=== PATIENT | male | born 1970 ===

== ENCOUNTER 2018-10-26 14:34 | Inpatient (IN) | payer BC, OTHER ==
--- NOTE | 2018-10-26 14:48 | ED PDOC ---
HPI:STROKE - Time Time: 14:45 - Historian Historian: Patient, Family - Chief Complaint Chief Complaint: Weakness, Numbness, Arm weakness, Leg weakness - Onset Date: 10/26/18 Time: 14:00 - Timing Timing: Improved - Location Locate left: Lower extremity - Severity of pain Maximum severity:: Moderate Severity Current: Mild - TPA Positive for Contraindication: Yes Reason tPA is not being Administered: Symtoms improving - Notes: Notes:: Weakness/numbness left upper and lower ext at 2 PM. not in room at time of onset of sxs. Did not witness seizure activity. Paramedics state on arrival pt was post-ictal but also did not witness seizure activity. No urinary or fecal incontinence. On arrival to ED, pt states sxs of weakness and numbness left side improving. NIHSS Stroke Scale - Date/Time Evaluation Performed Time Performed: 14:45 When Was NIHSS Performed: Code Stroke - How Severe is the Stroke Level of Consciousness: 0=Alert LOC to Questions: 0=Both comments correct LOC to commands: 0=Obeys both correctly Best Gaze: 0=Normal Visual: 0=No visual loss Facial: 0=Normal Motor Arm - Left: 0=No drift Motor Arm - Right: 0=No drift Motor Leg - Left: 0=No drift Motor Leg - Right: 0=No drift Limb Ataxia: 0=Absent Sensory: 0=Normal Best Language: 0=No aphasia Dysarthia: 0=Normal articulation Extinction & Inattention (Neglect): 0=Normal, no object Score: 0 rTPA Inclusion/Exclusion - Refusal of Treatment Patient Refused Treatment: No - Inclusion Criteria for Altepase Patient is 18 years or Older: Yes The Clinical Diagnosis of Ischemic Stroke That is Causing a Potentially Disabling Neurological Deficit: No Time of Onset is Well Established to be Less Than 270 Minute Before Treatment Would Begin: Yes Risk/Benefit Discussed With Patient/Family Member Present: No Past Medical History Vital Signs: Last Vital Signs Temp 97.7 F 10/26/18 14:36 Pulse 120 H 10/26/18 14:36 Resp 18 10/26/18 14:36 BP 109/67 10/26/18 14:36 Pulse Ox 94 L 10/26/18 14:36 - Medical History PMH: Diabetes, HTN Denies: HIV - Family History Family History: States: Unknown Family Hx - Home Medications Home Medications: Ambulatory Orders Medication Instructions Recorded Insulin Regular [HumuLIN R] 10 units SC ACTID 12/14/14 Insulin Detemir [Levemir Flexpen] 65 unit SC HS 12/14/14 Valsartan/Hydrochlorothiazide 1 tab PO DAILY 10/26/18 [Diovan Hct 160-12.5 mg Tab] - Allergies Allergies/Adverse Reactions: Allergies Allergy/AdvReac Type Severity Reaction Status Date / Time No Known Allergies Allergy Verified 12/14/14 12:42 Review of Systems ROS Statement: Except As Marked, All Systems Reviewed And Found Negative Neurological: Positive for: Weakness, Numbness (Left upper and lower ext.) Physical Exam - Reviewed Nursing Documentation Reviewed: Yes Vital Signs Reviewed: Yes - Physical Exam Appears: Positive for: Non-toxic, No Acute Distress Head Exam: Positive for: ATRAUMATIC, NORMAL INSPECTION, NORMOCEPHALIC Skin: Positive for: Normal Color, Warm, DRY Eye Exam: Positive for: EOMI, Normal appearance, PERRL ENT: Negative for: Other (Bite patel tip of tongue) Neck: Positive for: Normal, Painless ROM Cardiovascular/Chest: Positive for: Regular Rate, Rhythm Respiratory: Positive for: CNT, Normal Breath Sounds Gastrointestinal/Abdominal: Positive for: Normal Exam, Soft Back: Positive for: Normal Inspection Extremity: Positive for: Normal ROM Neurologic/Psych: Positive for: Alert, Oriented. Negative for: Motor/Sensory Deficits - ECG O2 Sat by Pulse Oximetry: 94 Disposition - Clinical Impression Clinical Impression: New onset seizure - Patient ED Disposition Is Patient to be Admitted: Yes - Disposition Disposition Time: 15:28 Condition: FAIR Forms: [facility] (Nepali) - Pt Status Changed To: Hospital Disposition Of: Observation - POA Present On Arrival: None
[2018-10-26 14:56] VITALS: BMI 33.7
--- NOTE | 2018-10-26 15:05 | CT ---
Date of service: 10/26/2018 PROCEDURE: CT HEAD WITHOUT CONTRAST. HISTORY: code stroke COMPARISON: None available. TECHNIQUE: Axial computed tomography images were obtained through the head/brain without intravenous contrast. Radiation dose: Total exam DLP = 1199.76 mGy-cm. This CT exam was performed using one or more of the following dose reduction techniques: Automated exposure control, adjustment of the mA and/or kV according to patient size, and/or use of iterative reconstruction technique. FINDINGS: HEMORRHAGE: No intracranial hemorrhage. BRAIN: Normal zhu-white matter differentiation and density are appreciated throughout the cerebrum and cerebellum with the brainstem appearing unremarkable as well. There is no mass effect. There is no suspicious extra-axial fluid collection and the midline brain anatomy appears diffusely unremarkable. VENTRICLES: Unremarkable. No hydrocephalus. CALVARIUM: Unremarkable. PARANASAL SINUSES: Unremarkable as visualized. No significant inflammatory changes. MASTOID AIR CELLS: Unremarkable as visualized. No inflammatory changes. OTHER FINDINGS: None. IMPRESSION: Unremarkable unenhanced head CT. Findings discussed with Dr. Justice with written down read back verification 10/26/2018 2:59 p.m..
[2018-10-26 15:45] LABS: BASO % 0.5 % (0.0-2.0); EOS % 0.7 % (0.0-4.0); HEMOGLOBIN 14.9 g/dL (12.0-18.0); LYMPH % 17.4 % (20.0-40.0); MEAN CELL VOLUME 101.3 fl (80.0-94.0); MEAN CORPUSCULAR HEMOGLOBIN 33.2 pg (27.0-31.0); MEAN CORPUSCULAR HGB CONC 32.8 g/dL (33.0-37.0); MEAN PLATELET VOLUME 8.8 fl (7.2-11.7); MONO # 0.4 K/uL (0.0-0.8); MONO % 6.9 % (0.0-10.0); NEUT # 4.3 K/uL (1.8-7.0); NEUT % 74.5 % (50.0-75.0); NRBC % 0.1 % (0.0-0.0); RBC 4.47 Mil/uL (4.40-5.90); RED CELL DISTRIBUTION WIDTH 14.1 % (11.5-14.5); WHITE BLOOD COUNT 5.8 K/uL (4.8-10.8)
[2018-10-26 15:48] LABS: INR 0.9
[2018-10-26 15:54] LABS: ALB/GLOB RATIO 1.3 (1.0-2.1); ALBUMIN 4.3 g/dL (3.5-5.0); ALT/SGPT 36 U/L (21-72); AST/SGOT 37 U/L (17-59); BLOOD UREA NITROGEN 14 mg/dl (9-20); CALCIUM 9.4 mg/dL (8.4-10.2); GFR NON-AFRICAN AMERICAN 50; HDL CHOLESTEROL 105 MG/DL (30-70)
[2018-10-26 16:04] LABS: LDL CHOLESTEROL 122 mg/dL (0-129)
[2018-10-26] MEDS ORDERED: Sodium Chloride 0.9% 1,000 ML IV STA (16:18)
--- NOTE | 2018-10-26 16:43 | MRI ---
Date of service: 10/26/2018 PROCEDURE: MRI BRAIN WITHOUT CONTRAST HISTORY: New onset seizure COMPARISON: None available. TECHNIQUE: Multiplanar, multisequence MR images of the brain were obtained without intravenous contrast enhancement. FINDINGS: HEMORRHAGE: None DWI: No evidence of an acute or early subacute infarction. BRAIN PARENCHYMA: Intrinsic signal throughout the zhu and white matter structures above below the tentorium appears within normal limits including the brainstem. There is no mass effect, parenchymal edema or loss of the corticomedullary differentiation. Midline brain anatomy appears within normal limits including the corpus callosum, brainstem and craniocervical junction. There is no suspicious extra-axial fluid collection identified. VENTRICLES: Unremarkable. No hydrocephalus. CRANIUM: Unremarkable. ORBITS: Grossly unremarkable. PARANASAL SINUSES/MASTOIDS: Clear VASCULAR SYSTEM: Skull base flow voids intact. OTHER FINDINGS: None. IMPRESSION: Unremarkable non contrast enhanced MRI of the brain.
--- NOTE | 2018-10-26 16:47 | RAD ---
Date of service: 10/26/2018 HISTORY: Code Stroke COMPARISON: 07/21/2013 FINDINGS: LUNGS: No active pulmonary disease. PLEURA: No significant pleural effusion identified, no pneumothorax apparent. CARDIOVASCULAR: No atherosclerotic calcification present Normal. OSSEOUS STRUCTURES: No significant abnormalities. VISUALIZED UPPER ABDOMEN: Normal. OTHER FINDINGS: None. IMPRESSION: No active disease. No significant interval change compared to the prior examination(s).
[2018-10-26 16:58] LABS: ABG ALLEN TEST YES; ARTERIAL BLOOD GAS HCO3 18.2 mmol/L (21-28); ARTERIAL BLOOD GAS O2 SAT 100.3 % (95-98); ARTERIAL BLOOD GAS PCO2 24 mm/Hg (35-45); ARTERIAL BLOOD GAS PH 7.39 (7.35-7.45); ARTERIAL BLOOD GAS PO2 97 mm/Hg (80-100); ARTERIAL BLOOD GAS TCO2 15.2 mmol/L (22-28)
[2018-10-26 17:00] LABS: PROTHROMBIN TIME 9.7 Seconds (9.8-13.1)
[2018-10-26] MEDS: Sodium Chloride 0.9% 1,000 ML IV SCH (17:05)
[2018-10-26 20:57] LABS: VENOUS BLOOD GAS PCO2 32 mmHg (40-60); VENOUS BLOOD GAS PO2 30 mm/Hg (30-55); VENOUS BLOOD PH 7.45 (7.32-7.43)
[2018-10-26] MEDS ORDERED: Insulin Detemir 100 Units/ml Inj SC SCH (22:00)
[2018-10-26] MEDS ORDERED: Insulin Regular 100 units/ml SC SCH (23:00)
[2018-10-27 05:49] LABS: LYMPH # 1.1 K/uL (1.0-4.3); LYMPH % 18.3 % (20.0-40.0); MEAN CORPUSCULAR HEMOGLOBIN 33.4 pg (27.0-31.0); MEAN CORPUSCULAR HGB CONC 33.8 g/dL (33.0-37.0); MEAN PLATELET VOLUME 9.1 fl (7.2-11.7); MONO # 3.7 K/uL (0.0-0.8); NEUT # 1.3 K/uL (1.8-7.0); NEUT % 20.7 % (50.0-75.0); NRBC % 0.2 % (0.0-0.0); PLATELET COUNT 178 K/uL (130-400); RBC 4.49 Mil/uL (4.40-5.90); RED CELL DISTRIBUTION WIDTH 13.8 % (11.5-14.5); WHITE BLOOD COUNT 6.1 K/uL (4.8-10.8)
[2018-10-27 05:57] LABS: MEAN CELL VOLUME 98.8 fl (80.0-94.0)
[2018-10-27] MEDS: Sodium Chloride 0.9% 1,000 ML IV SCH (06:06)
[2018-10-27] MEDS: Insulin Lispro (humaLOG) 100 Units/ml Inj SC SCH ×7 (06:40→21:41)
[2018-10-27 06:53] LABS: ALB/GLOB RATIO 1.2 (1.0-2.1); ALBUMIN 4.2 g/dL (3.5-5.0); ALT/SGPT 44 U/L (21-72); AST/SGOT 31 U/L (17-59); BLOOD UREA NITROGEN 12 mg/dl (9-20); CALCIUM 9.1 mg/dL (8.4-10.2); GFR NON-AFRICAN AMERICAN > 60
[2018-10-27] MEDS ORDERED: Insulin Regular 100 units/ml SC SCH (07:30)
--- NOTE | 2018-10-27 07:31 | CON ---
DATE: 10/26/2018 ENDOCRINOLOGY CONSULT LOCATION: Room 401. HISTORY OF PRESENT ILLNESS: This is a 48-year-old male with known history of type 2 insulin-requiring diabetes, presenting here with sudden onset of apparent seizure event with left-sided weakness and is now being referred for diabetic evaluation and management. PAST MEDICAL HISTORY: History of type 2 insulin-requiring diabetes, hypertension and underlying morbid obesity. His current insulin regimen consists of Levemir given as 65 units at bedtime with regular insulin given as 10 units t.i.d. FAMILY HISTORY: Positive for hypertension and heart disease. SOCIAL HISTORY: The patient has a supportive family. No known substance use. REVIEW OF SYSTEMS: As mentioned above. Admits to generalized body weakness with episodic bouts of dizziness and lightheadedness. No chest pains or palpitations. His oral intake has been fairly satisfactory with occasional dyspepsia. No recent alterations of bowel and urinary patterns. PHYSICAL EXAMINATION: GENERAL: This is an obese male in no apparent distress. VITAL SIGNS: Blood pressure of 140/80, pulse of 100 beats per minute and regular, temperature 98, respirations 20. Height is 6 feet 6 inches. Weight is 292 pounds. HEENT: Head: Normocephalic. Eyes: Anicteric with pink conjunctivae. Funduscopy not possible at this time. Ears, nose and throat otherwise normal. NECK: Supple. Thyroid gland is normal in size. No carotid bruits or any cervical adenopathy. CARDIOPULMONARY: Some adynamic precordium. S1, S2, is rapid and regular. LUNGS: Show scattered rhonchi. ABDOMEN: Obese, soft with positive bowel sounds. EXTREMITIES: No peripheral edema. Pulses are +2 bilaterally. LABORATORY DATA: His chemistry showed a BUN of 14, sodium 136, potassium 4.7, chloride 100, CO2 is 11, glucose is 288 and creatinine is 1.5. His glucose levels have ranged from 199 to 307. ASSESSMENT: This is a 48-year-old male with uncontrolled and decompensated type 2 insulin-requiring diabetes, presenting here with an apparent seizure event with left-sided weakness and currently undergoing neurologic workup and management and is also being referred for diabetic evaluation because of persistent hyperglycemic accelerations as noted thereof. He also has underlying morbid obesity, which contributes to the aforementioned increased insulin resistance and further impairs glucose tolerance thereof. PLAN OF MANAGEMENT: We will modify his current insulin regimen to a more physiologic basal and bolus insulin drug combination with a rapid acting insulin analogue instead of a short-acting regular insulin as noted and given. We will continue the basal insulin given as Levemir at 65 units at bedtime, and we will titrate incrementally as indicated to optimize metabolic control. Although not available in our hospital formulary, we will recommend for outpatient use a GLP-1 agonist which will not only improve his insulin sensitivity but also promote weight loss and improve his A1c levels otherwise. We will reinforce diabetic education and dietary instructions to include weight loss efforts at the time of this admission. We will follow and advise accordingly. Honey Hernández MD
[2018-10-27] MEDS ORDERED: Enoxaparin 40 mg Syringe SC SCH (09:00)
[2018-10-27] MEDS ORDERED: Potassium Chloride 20 mEq ER Tab PO ONE (09:05)
--- NOTE | 2018-10-27 09:08 | CP.PCM.HP ---
History of Present Illness - History of Present Illness History of Present Illness: pt admitted for new onset seizure vs tia. all bw noted. pt has minimal recollection of episode yesterday. mri and ct scan noted. no f/c, n/v/d. no complaints at present. eeg pending neuro consult pending. endo consult appriciated Present on Admission - Present on Admission Any Indicators Present on Admission: Yes History of Uncontrolled Diabetes: Yes Review of Systems - Constitutional Constitutional: As Per HPI - Neurological Neurological: As Per HPI, Convulsions Past Patient History - Past Medical History & Family History Past Medical History?: Yes - Past Social History Smoking Status: Never Smoked - CARDIAC Hx Cardiac Disorders: Yes Hx Hypertension: Yes - ENDOCRINE/METABOLIC Hx Endocrine Disorders: Yes Hx Diabetes Mellitus Type 2: Yes - HEMATOLOGICAL/ONCOLOGICAL Hx Human Immunodeficiency Virus (HIV): No - MUSCULOSKELETAL/RHEUMATOLOGICAL Hx Falls: Yes - PSYCHIATRIC Hx Substance Use: No - SURGICAL HISTORY Hx Appendectomy: Yes (Laparoscopic) - ANESTHESIA Hx Anesthesia: Yes Hx Anesthesia Reactions: No Meds Allergies/Adverse Reactions: Allergies Allergy/AdvReac Type Severity Reaction Status Date / Time No Known Allergies Allergy Verified 12/14/14 12:42 Physical Exam - Constitutional Appears: Well, Non-toxic, No Acute Distress - Head Exam Head Exam: ATRAUMATIC, NORMAL INSPECTION, NORMOCEPHALIC - Eye Exam Eye Exam: EOMI, Normal appearance, PERRL Pupil Exam: NORMAL ACCOMODATION, PERRL - ENT Exam ENT Exam: Mucous Membranes Moist, Normal Exam - Neck Exam Neck exam: Positive for: Normal Inspection - Respiratory Exam Respiratory Exam: Clear to Auscultation Bilateral, NORMAL BREATHING PATTERN - Cardiovascular Exam Cardiovascular Exam: REGULAR RHYTHM, RRR, +S1, +S2 - GI/Abdominal Exam GI & Abdominal Exam: Normal Bowel Sounds, Soft. absent: Tenderness - Extremities Exam Extremities exam: Positive for: full ROM, normal capillary refill, normal inspection, pedal pulses present - Back Exam Back exam: NORMAL INSPECTION - Neurological Exam Neurological exam: Alert, CN II-XII Intact, Normal Gait, Oriented x3, Reflexes Normal - Psychiatric Exam Psychiatric exam: Normal Affect, Normal Mood - Skin Skin Exam: Dry, Intact, Normal Color, Warm Results - Vital Signs Recent Vital Signs: Last Vital Signs Temp 98.1 F 10/27/18 08:03 Pulse 82 10/27/18 08:03 Resp 18 10/27/18 08:03 BP 152/89 H 10/27/18 08:03 Pulse Ox 98 10/27/18 08:03 - Labs Result Diagrams: 10/27/18 04:40 10/27/18 04:40 Labs: Laboratory Results - last 24 hr 10/26/18 10/26/18 10/26/18 15:04 15:04 15:04 WBC 5.8 RBC 4.47 Hgb 14.9 Hct 45.3 MCV 101.3 H D MCH 33.2 H MCHC 32.8 L RDW 14.1 Plt Count 196 MPV 8.8 Neut % (Auto) 74.5 Lymph % (Auto) 17.4 L [place] % (Auto) 6.9 Eos % (Auto) 0.7 Baso % (Auto) 0.5 Neut # (Auto) 4.3 Lymph # (Auto) 1.0 [place] # (Auto) 0.4 Eos # (Auto) 0.0 Baso # (Auto) 0.0 PT 9.7 L INR 0.9 APTT 30.0 pCO2 pO2 HCO3 ABG pH ABG Total CO2 ABG O2 Saturation ABG Base Excess Jhon Test ABG Potassium VBG pH VBG pCO2 VBG HCO3 VBG Total CO2 VBG O2 Sat (Calc) VBG Base Excess VBG Potassium A-a O2 Difference Glucose Lactate FiO2 Crit Value Called To Crit Value Called By Crit Value Read Back Blood Gas Notified Time Sodium 136 Potassium 4.7 Chloride 100 Carbon Dioxide 11 L* D Anion Gap 30 H BUN 14 Creatinine 1.5 Est GFR ( Amer) > 60 Est GFR (Non-Af Amer) 50 POC Glucose (mg/dL) Random Glucose 288 H Calcium 9.4 Phosphorus Magnesium Total Bilirubin 0.4 AST 37 ALT 36 Alkaline Phosphatase 137 H Total Creatine Kinase Troponin I 0.1080 Total Protein 7.7 Albumin 4.3 Globulin 3.3 Albumin/Globulin Ratio 1.3 Triglycerides 290 H Cholesterol 275 H LDL Cholesterol Direct 122 HDL Cholesterol 105 H TSH 3rd Generation Arterial Blood Potassium Venous Blood Potassium Blood Type Blood Type Confirm Antibody Screen BBK History Checked 10/26/18 10/26/18 10/26/18 15:10 15:30 16:06 WBC RBC Hgb Hct MCV MCH MCHC RDW Plt Count MPV Neut % (Auto) Lymph % (Auto) [place] % (Auto) Eos % (Auto) Baso % (Auto) Neut # (Auto) Lymph # (Auto) [place] # (Auto) Eos # (Auto) Baso # (Auto) PT INR APTT pCO2 pO2 HCO3 ABG pH ABG Total CO2 ABG O2 Saturation ABG Base Excess Jhon Test ABG Potassium VBG pH VBG pCO2 VBG HCO3 VBG Total CO2 VBG O2 Sat (Calc) VBG Base Excess VBG Potassium A-a O2 Difference Glucose Lactate FiO2 Crit Value Called To Crit Value Called By Crit Value Read Back Blood Gas Notified Time Sodium Potassium Chloride Carbon Dioxide Anion Gap BUN Creatinine Est GFR ( Amer) Est GFR (Non-Af Amer) POC Glucose (mg/dL) 253 H Random Glucose Calcium Phosphorus Magnesium Total Bilirubin AST ALT Alkaline Phosphatase Total Creatine Kinase 121 Troponin I Total Protein Albumin Globulin Albumin/Globulin Ratio Triglycerides Cholesterol LDL Cholesterol Direct HDL Cholesterol TSH 3rd Generation Arterial Blood Potassium Venous Blood Potassium Blood Type O POSITIVE Blood Type Confirm Antibody Screen Negative BBK History Checked No verified bt 10/26/18 10/26/18 10/26/18 16:26 16:54 17:11 WBC RBC Hgb Hct MCV MCH MCHC RDW Plt Count MPV Neut % (Auto) Lymph % (Auto) [place] % (Auto) Eos % (Auto) Baso % (Auto) Neut # (Auto) Lymph # (Auto) [place] # (Auto) Eos # (Auto) Baso # (Auto) PT INR APTT pCO2 24 L pO2 97 HCO3 18.2 L ABG pH 7.39 ABG Total CO2 15.2 L ABG O2 Saturation 100.3 H ABG Base Excess -8.6 L Jhon Test Yes ABG Potassium 4.6 VBG pH VBG pCO2 VBG HCO3 VBG Total CO2 VBG O2 Sat (Calc) VBG Base Excess VBG Potassium A-a O2 Difference 23.0 Glucose 219 H Lactate 6.5 H* FiO2 21.0 Crit Value Called To Saurav almodovar md Crit Value Called By 6075 Crit Value Read Back Y Blood Gas Notified Time 1657 Sodium 137.0 Potassium Chloride 98.0 Carbon Dioxide Anion Gap BUN Creatinine Est GFR ( Amer) Est GFR (Non-Af Amer) POC Glucose (mg/dL) 199 H Random Glucose Calcium Phosphorus Magnesium Total Bilirubin AST ALT Alkaline Phosphatase Total Creatine Kinase Troponin I Total Protein Albumin Globulin Albumin/Globulin Ratio Triglycerides Cholesterol LDL Cholesterol Direct HDL Cholesterol TSH 3rd Generation Arterial Blood Potassium 4.6 Venous Blood Potassium Blood Type Blood Type Confirm O POSITIVE Antibody Screen BBK History Checked 10/26/18 10/26/18 10/27/18 20:53 21:04 04:40 WBC 6.1 RBC 4.49 Hgb 15.0 Hct 44.4 MCV 98.8 H D MCH 33.4 H MCHC 33.8 RDW 13.8 Plt Count 178 MPV 9.1 Neut % (Auto) 20.7 L Lymph % (Auto) 18.3 L [place] % (Auto) 61.0 H Eos % (Auto) 0.0 Baso % (Auto) 0.0 Neut # (Auto) 1.3 L Lymph # (Auto) 1.1 [place] # (Auto) 3.7 H Eos # (Auto) 0.0 Baso # (Auto) 0.0 PT INR APTT pCO2 pO2 30 HCO3 ABG pH ABG Total CO2 ABG O2 Saturation ABG Base Excess Jhon Test ABG Potassium VBG pH 7.45 H VBG pCO2 32 L VBG HCO3 23.2 VBG Total CO2 23.2 VBG O2 Sat (Calc) 68.0 H VBG Base Excess -1.0 L VBG Potassium 4.3 A-a O2 Difference Glucose 177 H Lactate 1.9 FiO2 21.0 Crit Value Called To Crit Value Called By Crit Value Read Back Blood Gas Notified Time Sodium 136.0 Potassium Chloride 101.0 Carbon Dioxide Anion Gap BUN Creatinine Est GFR ( Amer) Est GFR (Non-Af Amer) POC Glucose (mg/dL) 307 H Random Glucose Calcium Phosphorus Magnesium Total Bilirubin AST ALT Alkaline Phosphatase Total Creatine Kinase Troponin I Total Protein Albumin Globulin Albumin/Globulin Ratio Triglycerides Cholesterol LDL Cholesterol Direct HDL Cholesterol TSH 3rd Generation Arterial Blood Potassium Venous Blood Potassium 4.3 Blood Type Blood Type Confirm Antibody Screen BBK History Checked 10/27/18 10/27/18 04:40 05:05 WBC RBC Hgb Hct MCV MCH MCHC RDW Plt Count MPV Neut % (Auto) Lymph % (Auto) [place] % (Auto) Eos % (Auto) Baso % (Auto) Neut # (Auto) Lymph # (Auto) [place] # (Auto) Eos # (Auto) Baso # (Auto) PT INR APTT pCO2 pO2 HCO3 ABG pH ABG Total CO2 ABG O2 Saturation ABG Base Excess Jhon Test ABG Potassium VBG pH VBG pCO2 VBG HCO3 VBG Total CO2 VBG O2 Sat (Calc) VBG Base Excess VBG Potassium A-a O2 Difference Glucose Lactate FiO2 Crit Value Called To Crit Value Called By Crit Value Read Back Blood Gas Notified Time Sodium 138 Potassium 3.3 L Chloride 102 Carbon Dioxide 26 Anion Gap 13 BUN 12 Creatinine 0.9 Est GFR ( Amer) > 60 Est GFR (Non-Af Amer) > 60 POC Glucose (mg/dL) 101 Random Glucose 46 L Calcium 9.1 Phosphorus 3.1 Magnesium 2.4 H Total Bilirubin 1.0 AST 31 ALT 44 Alkaline Phosphatase 138 H Total Creatine Kinase Troponin I Total Protein 7.6 Albumin 4.2 Globulin 3.4 Albumin/Globulin Ratio 1.2 Triglycerides Cholesterol LDL Cholesterol Direct HDL Cholesterol TSH 3rd Generation 3.09 Arterial Blood Potassium Venous Blood Potassium Blood Type Blood Type Confirm Antibody Screen BBK History Checked Assessment & Plan (1) DVT prophylaxis Assessment and Plan: scd nad ae hose lovenox held until seizure r/o encourage ambulation w/ assistance Status: Acute (2) Diabetes mellitus type 2 in obese Assessment and Plan: riss, home meds, endo, ivf diet control Status: Acute (3) New onset seizure Assessment and Plan: neuro mri and ct noted eeg pending seizure ppx Status: Acute Decision To Admit - Pt Status Changed To: Hospital Disposition Of: Inpatient - Admit Certification Admit to Inpatient:: After my assessment, the patient will require hospitalization for at least two midnights. This is because of the severity of symptoms shown, intensity of services needed, and/or the medical risk in this patient being treated as an outpatient. - . Bed Request Type: Telemetry Admitting Physician: Zay Byrnes
[2018-10-27 10:05] LABS: BASOPHIL 1 % (0-2); EOSINOPHIL 1 % (0-7); LYMPHOCYTE 29 % (20-50); MONOCYTE 12 % (0-10); NEUTROPHIL 56 % (42-75); PLATELET ESTIMATE NORMAL (NORMAL); REACTIVE LYMPHOCYTES 1 % (0-0); TOTAL CELLS COUNTED 100
--- NOTE | 2018-10-27 10:57 | CARD ---
APPROVED REPORT Date of service: 10/26/2018 EKG Measurement Heart [id number] <Conclusion> Sinus tachycardia Nonspecific ST abnormality Abnormal ECG
--- NOTE | 2018-10-27 11:15 | PN ---
DATE: 10/27/2018 LOCATION: Room 401. SUBJECTIVE: This is a 48-year-old male with recent uncontrolled type 2 insulin-requiring diabetes presenting here with marked hyperglycemic accelerations and is now being followed closely for metabolic management. His glycemic levels are fluctuating but improved and the latest glucose levels overnight ranged from 101 to 307 mg/dL. His chemistry showed a BUN of 12, sodium 138, potassium 3.3, chloride 102, CO2 of 26, glucose 46 and creatinine 0.9. His glucose, however, was 307 at bedtime last night. ASSESSMENT: This is a 48-year-old male with an apparent new onset seizures and currently undergoing neurological workup and management and is now also being followed closely for metabolic management. His extremes of glycemic fluctuations are related to the variability of his oral intake also as noted. PLAN OF MANAGEMENT: We will modify his current basal insulin and lower the Levemir to 50 units subcu at bedtime daily to start tonight as ordered. We will continue the low-dose correction scale using Humalog insulin as given. We will also continue the prandial insulin given as Humalog at 12 units t.i.d. before meals as ordered. We will obtain serial chemistries and supplement accordingly as needed. We will continue the IV hydration as given to optimize metabolic fluid and electrolyte losses accordingly. We will obtain serial chemistries and supplement accordingly as indicated. Honey Hernández MD
--- NOTE | 2018-10-27 12:41 | PCM.EEG ---
Electroencephalogram Report - Electroencephalogram Report Procedure Date: 10/27/18 Medication: Lovenox, Insulin Interpretation: Technical Information: This was a 16 -channel EEG, 1-channel EKG routine EEG performed using an [employer] machine. Electrodes were applied using the 10/20 international placement system. Start; 8;54 End; 9;42 Total 48 min Clinical Information: seizures. During resting wakefulness there was a symmetric posterior dominant rhythm at 8.5-9.5 Hz, 30-50 uV, which was reactive to eye opening and closing. Drowsiness (9;24) was associated with fragmentation of the posterior dominant rhythm and with slow roving eye movements. Light sleep was not recorded, Hyperventilation was not performed. Photic stimulation was performed and there were no changes on the record. Focal abnormality; none ECG was associated with a normal sinus rhythm. Impression: This is a normal awake and drowsy electroencephalogram.
--- NOTE | 2018-10-27 18:23 | CARD ---
APPROVED REPORT Date of service: 10/27/2018 EXAM: Two-dimensional and M-mode echocardiogram with Doppler and color Doppler. Other Information Quality : GoodRhythm : NSR INDICATION CVA/TIA Hypertension/HCVD 2D DIMENSIONS IVSd1.54 (0.7-1.1cm)LVDd5.35 (3.9-5.9cm) LVOT Diameter2.64 (1.8-2.4cm)PWd1.32 (0.7-1.1cm) IVSs1.28 (0.8-1.2cm)LVDs4.14 (2.5-4.0cm) FS (%) 22.7 %PWs1.48 (0.8-1.2cm) M-Mode DIMENSIONS Left Atrium (MM)4.21 (2.5-4.0cm)IVSd1.09 (0.7-1.1cm) Aortic Root3.68 (2.2-3.7cm)LVDd6.94 (4.0-5.6cm) Aortic Cusp Exc.2.68 (1.5-2.0cm)PWd1.00 (0.7-1.1cm) IVSs1.59 cmFS (%) 25 % LVDs5.18 (2.0-3.8cm)PWs1.76 cm Aortic Valve AoV Peak Mpnxftyf238.9cm/sAoV VTI16.6cmAO Peak GR.5mmHg LVOT Peak Embnigwk40.9cm/sLVOT VTI13.05cmAO Mean GR.3mmHg QUINTON (VMAX)1.65fk4PKD (VTI)1.62cm2 Mitral Valve MV E Lfjbgunt84.7cm/sMV DECEL [id number] A Rvhubdii18.9cm/s MV BIM57wuS/A ratio0.5MVA (PHT)5.63cm2 TDI Lateral E' Peak V5.95cm/sMedial E' Peak V5.05cm/sE/Lateral E'6.5 E/Medial E'7.7 LEFT VENTRICLE The left ventricle is normal size. There is mild to moderate concentric left ventricular hypertrophy. The systolic function is mildly to moderately impaired. The estimated ejection fraction is 35-40% There is anterior wall hypokinesis. Transmitral Doppler flow pattern is Grade I-abnormal relaxation pattern. No left ventricle thrombus noted on this study. There is no ventricular septal defect visualized. There is no left ventricular aneurysm. There is no mass noted in the left ventricle. RIGHT VENTRICLE The right ventricle is normal size. There is normal right ventricular wall thickness. The right ventricular systolic function is normal. ATRIA The left atrium is mildly dilated. The right atrium size is normal. The interatrial septum is intact with no evidence for an atrial septal defect. AORTIC VALVE The aortic valve is normal in structure. Trace aortic regurgitation is present. There is no aortic valvular stenosis. There is no aortic valvular vegetation. MITRAL VALVE The mitral valve is normal in structure. There is no evidence of mitral valve prolapse. There is no mitral valve stenosis. There is mild mitral valve regurgitation noted. TRICUSPID VALVE The tricuspid valve is normal in structure. There is trace tricuspid valve regurgitation noted. There is no tricuspid valve prolapse or vegetation. There is no tricuspid valve stenosis. PULMONIC VALVE The pulmonary valve is normal in structure. There is no pulmonic valvular regurgitation. There is no pulmonic valvular stenosis. GREAT VESSELS The aortic root is normal in size. The ascending aorta is normal in size. The pulmonary artery is normal. The IVC is normal in size and collapses >50% with inspiration. PERICARDIAL EFFUSION There is no pericardial effusion. There is no pleural effusion. <Conclusion> There is mild to moderate concentric left ventricular hypertrophy. The systolic function is mildly to moderately impaired. The estimated ejection fraction is 35-40%. There is anterior wall hypokinesis. Transmitral Doppler flow pattern is Grade I-abnormal relaxation pattern. The left atrium is mildly dilated. There is mild mitral valve regurgitation noted. There is trace tricuspid valve regurgitation noted.
[2018-10-27] MEDS ORDERED: Insulin Detemir 100 Units/ml Inj SC SCH (22:00)
[2018-10-28 06:03] LABS: BASO % 0.6 % (0.0-2.0); EOS # 0.1 K/uL (0.0-0.7); EOS % 3.1 % (0.0-4.0); HEMOGLOBIN 14.8 g/dL (12.0-18.0); LYMPH % 27.5 % (20.0-40.0); MEAN CELL VOLUME 99.6 fl (80.0-94.0); MEAN CORPUSCULAR HEMOGLOBIN 33.5 pg (27.0-31.0); MEAN CORPUSCULAR HGB CONC 33.7 g/dL (33.0-37.0); MEAN PLATELET VOLUME 8.7 fl (7.2-11.7); MONO # 0.5 K/uL (0.0-0.8); MONO % 14.8 % (0.0-10.0); NEUT # 1.9 K/uL (1.8-7.0); NRBC % 0.1 % (0.0-0.0); RBC 4.4 Mil/uL (4.40-5.90); RED CELL DISTRIBUTION WIDTH 13.6 % (11.5-14.5); WHITE BLOOD COUNT 3.5 K/uL (4.8-10.8)
[2018-10-28 06:17] LABS: ALB/GLOB RATIO 1.2 (1.0-2.1); ALBUMIN 3.8 g/dL (3.5-5.0); ALT/SGPT 27 U/L (21-72); AST/SGOT 39 U/L (17-59); BLOOD UREA NITROGEN 12 mg/dl (9-20); CALCIUM 9.3 mg/dL (8.4-10.2); GFR NON-AFRICAN AMERICAN > 60
--- NOTE | 2018-10-28 08:27 | CP.PCM.PCO ---
Assessment & Plan - Assessment and Plan (Free Text) Assessment: patient seen and examined. Reports feeling tired this am. denies sob or cp pmhx obtained ; pt.d/ Type I DM 2004, only f/u pmd intermittently, admits to etoh intake daily "1-2" bottles of wine, denies tremors, denies depression or anxiety . pt. with flat affect, Echo results noted; EF 35-40% with anterior wall hyponinesis Cardiology consult w/ recommended cardiac cath, patient currently refusing cath pt. w/ no episodes of seizures overnight but will need monitoring x 24 hrs per neuro recommendations
[2018-10-28] MEDS: Insulin Lispro (humaLOG) 100 Units/ml Inj SC SCH ×7 (08:50→21:32)
--- NOTE | 2018-10-28 09:25 | CP.PCM.CON ---
History of Present Illness - History of Present Illness History of Present Illness: ASKED TO SEE PT BY DR PALMA IN [facility] 48 YO MALE ADMITTED WITH NEW ONSET SEIZURE X 1. UPON EVALUATION PT FOUND TO HAV E EF OF 30%. CARDIOLOGY CONSULT THEN REQUESTED. PT DENIES CP, SOB, PALP, LH, DIZZINESS, SYNCOPE, NEAR SYNCOPE. PT HAS LONG HX OF HTN, IDDM, DYSLIPIDEMIA. PT HAS A DISTANT HX OF TOBACCO USE AND CURRENT ETOH ABUSE. Past Patient History - Past Medical History & Family History Past Medical History?: Yes - Past Social History Smoking Status: Never Smoked - CARDIAC Hx Cardiac Disorders: Yes Hx Hypertension: Yes - ENDOCRINE/METABOLIC Hx Endocrine Disorders: Yes Hx Diabetes Mellitus Type 2: Yes - HEMATOLOGICAL/ONCOLOGICAL Hx Human Immunodeficiency Virus (HIV): No - MUSCULOSKELETAL/RHEUMATOLOGICAL Hx Falls: Yes - PSYCHIATRIC Hx Substance Use: No - SURGICAL HISTORY Hx Appendectomy: Yes (Laparoscopic) - ANESTHESIA Hx Anesthesia: Yes Hx Anesthesia Reactions: No Meds Home Medications: Home Medication List Medication Instructions Recorded Confirmed Type Aspirin 325 mg PO DAILY #30 tab 10/29/18 Rx Atorvastatin [Lipitor] 20 mg PO HS #30 tab 10/29/18 Rx Carvedilol [Coreg] 6.25 mg PO Q12 #30 tab 10/29/18 Rx Allergies/Adverse Reactions: Allergies Allergy/AdvReac Type Severity Reaction Status Date / Time No Known Allergies Allergy Verified 12/14/14 12:42 - Medications Medications: Current Medications Acetaminophen (Tylenol 325mg Tab) 650 mg PO Q4 PRN PRN Reason: Headache Last Admin: 10/27/18 09:01 Dose: 650 mg Aspirin (Aspirin) 325 mg PO DAILY [facility] Chlordiazepoxide (Librium) 25 mg PO Q8 PRN PRN Reason: Symptoms of alcohol withdrawl Last Admin: 10/28/18 08:58 Dose: 25 mg Enoxaparin Sodium (Lovenox) 40 mg SC DAILY [facility]; Protocol Folic Acid (Folic Acid) 1 mg PO DAILY [facility] Last Admin: 10/28/18 08:50 Dose: 1 mg Ibuprofen (Motrin Tab) 600 mg PO Q6 PRN PRN Reason: Headache Last Admin: 10/27/18 12:06 Dose: 600 mg Insulin Detemir (Levemir) 50 units SC HS [facility] Last Admin: 10/27/18 21:40 Dose: 50 units Insulin Human Lispro (Humalog) 12 units SC AC [facility] Last Admin: 10/28/18 08:50 Dose: 12 units Insulin Human Lispro (Humalog) 0 units SC ACHS [facility] Last Admin: 10/28/18 08:51 Dose: Not Given Thiamine HCl (Vitamin B1 Tab) 100 mg PO DAILY [facility] Last Admin: 10/28/18 08:50 Dose: 100 mg Results - Vital Signs Recent Vital Signs: Last Vital Signs Temp 98.5 F 10/28/18 08:11 Pulse 98 H 10/28/18 08:11 Resp 18 10/28/18 08:11 BP 153/82 H 10/28/18 08:11 Pulse Ox 97 10/28/18 08:11 - Labs Result Diagrams: 10/29/18 04:20 10/29/18 04:20 Labs: Laboratory Results - last 24 hr 10/26/18 10/26/18 10/27/18 14:41 15:26 04:40 WBC RBC Hgb Hct MCV MCH MCHC RDW Plt Count MPV Neut % (Auto) Lymph % (Auto) Forrest % (Auto) 61.0 H Eos % (Auto) Baso % (Auto) Neut # (Auto) Lymph # (Auto) Forrest # (Auto) Eos # (Auto) Baso # (Auto) Neutrophils % (Manual) 56 Lymphocytes % (Manual) 29 Reactive Lymphs % 1 H Monocytes % (Manual) 12 H Eosinophils % (Manual) 1 Basophils % (Manual) 1 Platelet Estimate Normal RBC Morphology Normal Sodium Potassium Chloride Carbon Dioxide Anion Gap BUN Creatinine Est GFR ( Amer) Est GFR (Non-Af Amer) POC Glucose (mg/dL) 328 H Random Glucose Hemoglobin A1c 8.7 H Calcium Total Bilirubin AST ALT Alkaline Phosphatase Total Protein Albumin Globulin Albumin/Globulin Ratio Cortisol AM Sample Alcohol, Quantitative 10/27/18 10/27/18 10/27/18 04:40 11:04 12:20 WBC RBC Hgb Hct MCV MCH MCHC RDW Plt Count MPV Neut % (Auto) Lymph % (Auto) Forrest % (Auto) Eos % (Auto) Baso % (Auto) Neut # (Auto) Lymph # (Auto) Forrest # (Auto) Eos # (Auto) Baso # (Auto) Neutrophils % (Manual) Lymphocytes % (Manual) Reactive Lymphs % Monocytes % (Manual) Eosinophils % (Manual) Basophils % (Manual) Platelet Estimate RBC Morphology Sodium Potassium Chloride Carbon Dioxide Anion Gap BUN Creatinine Est GFR ( Amer) Est GFR (Non-Af Amer) POC Glucose (mg/dL) 73 111 H Random Glucose Hemoglobin A1c Calcium Total Bilirubin AST ALT Alkaline Phosphatase Total Protein Albumin Globulin Albumin/Globulin Ratio Cortisol AM Sample 18.4 Alcohol, Quantitative 10/27/18 10/27/18 10/27/18 16:27 21:05 21:05 WBC RBC Hgb Hct MCV MCH MCHC RDW Plt Count MPV Neut % (Auto) Lymph % (Auto) Forrest % (Auto) Eos % (Auto) Baso % (Auto) Neut # (Auto) Lymph # (Auto) Forrest # (Auto) Eos # (Auto) Baso # (Auto) Neutrophils % (Manual) Lymphocytes % (Manual) Reactive Lymphs % Monocytes % (Manual) Eosinophils % (Manual) Basophils % (Manual) Platelet Estimate RBC Morphology Sodium Potassium Chloride Carbon Dioxide Anion Gap BUN Creatinine Est GFR ( Amer) Est GFR (Non-Af Amer) POC Glucose (mg/dL) 142 H 132 H 132 H Random Glucose Hemoglobin A1c Calcium Total Bilirubin AST ALT Alkaline Phosphatase Total Protein Albumin Globulin Albumin/Globulin Ratio Cortisol AM Sample Alcohol, Quantitative 10/28/18 10/28/18 10/28/18 05:23 05:30 05:30 WBC 3.5 L RBC 4.40 Hgb 14.8 Hct 43.8 MCV 99.6 H MCH 33.5 H MCHC 33.7 RDW 13.6 Plt Count 140 MPV 8.7 Neut % (Auto) 54.0 Lymph % (Auto) 27.5 Forrest % (Auto) 14.8 H Eos % (Auto) 3.1 Baso % (Auto) 0.6 Neut # (Auto) 1.9 Lymph # (Auto) 1.0 Forrest # (Auto) 0.5 Eos # (Auto) 0.1 Baso # (Auto) 0.0 Neutrophils % (Manual) Lymphocytes % (Manual) Reactive Lymphs % Monocytes % (Manual) Eosinophils % (Manual) Basophils % (Manual) Platelet Estimate RBC Morphology Sodium 140 Potassium 4.9 Chloride 99 Carbon Dioxide 29 Anion Gap 17 BUN 12 Creatinine 1.1 Est GFR ( Amer) > 60 Est GFR (Non-Af Amer) > 60 POC Glucose (mg/dL) 185 H Random Glucose 193 H Hemoglobin A1c Calcium 9.3 Total Bilirubin 0.9 AST 39 ALT 27 Alkaline Phosphatase 119 Total Protein 7.0 Albumin 3.8 Globulin 3.2 Albumin/Globulin Ratio 1.2 Cortisol AM Sample Alcohol, Quantitative 10/28/18 08:45 WBC RBC Hgb Hct MCV MCH MCHC RDW Plt Count MPV Neut % (Auto) Lymph % (Auto) Forrest % (Auto) Eos % (Auto) Baso % (Auto) Neut # (Auto) Lymph # (Auto) Forrest # (Auto) Eos # (Auto) Baso # (Auto) Neutrophils % (Manual) Lymphocytes % (Manual) Reactive Lymphs % Monocytes % (Manual) Eosinophils % (Manual) Basophils % (Manual) Platelet Estimate RBC Morphology Sodium Potassium Chloride Carbon Dioxide Anion Gap BUN Creatinine Est GFR ( Amer) Est GFR (Non-Af Amer) POC Glucose (mg/dL) Random Glucose Hemoglobin A1c Calcium Total Bilirubin AST ALT Alkaline Phosphatase Total Protein Albumin Globulin Albumin/Globulin Ratio Cortisol AM Sample Alcohol, Quantitative < 10 Assessment & Plan (1) Cardiomyopathy Status: Acute Priority: High Comment: needs cath to eval for cad. etoh and tobacco counseling. start asa and coreg. monitor bp and labs (2) ETOH abuse Status: Chronic Priority: High (3) Tobacco abuse Status: Chronic Priority: High (4) HTN (hypertension) Status: Chronic Priority: Medium (5) Diabetes mellitus type 2 in obese Status: Chronic Priority: High
--- NOTE | 2018-10-28 11:58 | CP.PCM.PN ---
Subjective - Date & Time of Evaluation Date of Evaluation: 10/28/18 Time of Evaluation: 11:51 - Subjective Subjective: Neuro Follow-Up: Mr. Srivastava was evaluated this morning. present at bedside. Pt denies any complaints aside from a mild headache on and off (5/10 now). He states that he feels generally well. Denies dizziness, visual changes, chest pain, palpitations, sob, cough, abd pain, n/v/d, tremors, paresthesias. Objective - Vital Signs/Intake and Output Vital Signs (last 24 hours): Temp Pulse Resp BP Pulse Ox 98.5 F 85 18 153/82 H 97 10/28/18 08:11 10/28/18 09:00 10/28/18 08:11 10/28/18 08:11 10/28/18 08:11 - Medications Medications: Current Medications Acetaminophen (Tylenol 325mg Tab) 650 mg PO Q4 PRN PRN Reason: Headache Last Admin: 10/27/18 09:01 Dose: 650 mg Aspirin (Aspirin) 325 mg PO DAILY [facility] Last Admin: 10/28/18 11:45 Dose: 325 mg Carvedilol (Coreg) 6.25 mg PO Q12 [facility] Chlordiazepoxide (Librium) 25 mg PO Q8 PRN PRN Reason: Symptoms of alcohol withdrawl Last Admin: 10/28/18 08:58 Dose: 25 mg Enoxaparin Sodium (Lovenox) 40 mg SC DAILY [facility]; Protocol Folic Acid (Folic Acid) 1 mg PO DAILY [facility] Last Admin: 10/28/18 08:50 Dose: 1 mg Ibuprofen (Motrin Tab) 600 mg PO Q6 PRN PRN Reason: Headache Last Admin: 10/27/18 12:06 Dose: 600 mg Insulin Detemir (Levemir) 50 units SC HS [facility] Last Admin: 10/27/18 21:40 Dose: 50 units Insulin Human Lispro (Humalog) 12 units SC AC [facility] Last Admin: 10/28/18 11:46 Dose: 12 units Insulin Human Lispro (Humalog) 0 units SC ACHS [facility] Last Admin: 10/28/18 11:46 Dose: Not Given Thiamine HCl (Vitamin B1 Tab) 100 mg PO DAILY [facility] Last Admin: 10/28/18 08:50 Dose: 100 mg - Labs Labs: 10/28/18 05:30 10/28/18 05:30 PT 9.7 Seconds (9.8-13.1) L 10/26/18 15:04 INR 0.9 10/26/18 15:04 APTT 30.0 Seconds (25.6-37.1) 10/26/18 15:04 - Constitutional Appears: Well, Non-toxic, No Acute Distress - Head Exam Head Exam: ATRAUMATIC, NORMAL INSPECTION, NORMOCEPHALIC - Eye Exam Eye Exam: EOMI, Normal appearance, PERRL Pupil Exam: NORMAL ACCOMODATION, PERRL - ENT Exam ENT Exam: Mucous Membranes Moist - Neck Exam Neck Exam: Full ROM, Normal Inspection - Respiratory Exam Respiratory Exam: NORMAL BREATHING PATTERN - Extremities Exam Extremities Exam: Full ROM. absent: Calf Tenderness, Pedal Edema - Back Exam Back Exam: Full ROM - Neurological Exam Neurological Exam: Alert, Awake, CN II-XII Intact, Oriented x3, Reflexes Normal Neuro motor strength exam: Left Upper Extremity: 5, Right Upper Extremity: 5, Left Lower Extremity: 5, Right Lower Extremity: 5 - Psychiatric Exam Psychiatric exam: Flat Affect - Skin Skin Exam: Normal Color Assessment and Plan (1) Alcohol withdrawal seizure Assessment & Plan: Imaging reviewed: -CT Head: unremarkable -EEG: normal -Brain MRI: unremarkable -ECHO: EF 35-40% -Pt does not need AE as his seizures are likely related to withdrawal of ETOH and all imaging negative. -We recommend to keep the pt one more night to monitor for seizure activity. If no seizures overnight, then he can be cleared from neuro standpoint for d/c tomorrow morning. -Discussed with pt and detox. Recommend that pt undergoes detox if he a grees, though based on my conversation with him he wants to go home and detox on his own. -Cardiology consulted. -Pt to follow up with Dr. Fields in the office within [address] Fields's office information to the pt upon d/c. -Notify neuro team of any acute changes in pt's condition or any seizure activity. Vita Wynne, JESICA, COMPTROLLER Discussed with Dr. Fields Status: Acute
[2018-10-28 15:27] LABS: BENZODIAZEPINES, UR NEGATIVE (NEGATIVE)
[2018-10-28 15:31] LABS: BARBITURATES, UR NEGATIVE (NEGATIVE); OPIATES, UR NEGATIVE (NEGATIVE); PHENCYCLIDINE, UR NEGATIVE (NEGATIVE)
--- NOTE | 2018-10-28 20:00 | PN ---
DATE: 10/28/2018 ENDOCRINOLOGY FOLLOWUP LOCATION: Room 401. SUBJECTIVE: This is a 48-year-old male with recent uncontrolled type 2 insulin-requiring diabetes, currently undergoing neurological workup for possible TIA and also seen by cardiology for cardiac evaluation and management and is being followed closely also for metabolic management. His glycemic levels are fluctuating but improved and the glucose levels today have ranged from 166 to 180 and 185 mg/dL. LABORATORY DATA: His chemistry showed a BUN of 12, sodium 140, potassium 4.9, chloride 99, CO2 of 29, glucose 193 and creatinine 1.1. ASSESSMENT AND PLAN: So at this time we will modify once again his basal and bolus insulin regimen and increase the Levemir given as basal insulin to 54 units subcu at bedtime daily to start tonight. We will titrate his prandial insulin with Humalog to be given as 12 units t.i.d. before meals as ordered. We will continue the low-dose correction scale using Humalog insulin as given. We will titrate incremental as indicated to optimize metabolic control. We will follow. Honey Hernández MD
--- NOTE | 2018-10-28 21:38 | CP.PCM.PN ---
Subjective - Date & Time of Evaluation Date of Evaluation: 10/28/18 Time of Evaluation: 21:38 - Subjective Subjective: pt comfortable in bed. no f/c, n/v/d. bw nad consults noted. no further seizures. eeg normal. echo w/ ef 30-40% Objective - Vital Signs/Intake and Output Vital Signs (last 24 hours): Temp Pulse Resp BP Pulse Ox 98.7 F 97 H 20 152/98 H 97 10/28/18 20:08 10/28/18 21:16 10/28/18 20:08 10/28/18 21:16 10/28/18 20:08 - Medications Medications: Current Medications Acetaminophen (Tylenol 325mg Tab) 650 mg PO Q4 PRN PRN Reason: Headache Last Admin: 10/27/18 09:01 Dose: 650 mg Aspirin (Aspirin) 325 mg PO DAILY [facility] Last Admin: 10/28/18 11:45 Dose: 325 mg Carvedilol (Coreg) 6.25 mg PO Q12 [facility] Last Admin: 10/28/18 21:16 Dose: 6.25 mg Chlordiazepoxide (Librium) 25 mg PO Q8 PRN PRN Reason: Symptoms of alcohol withdrawl Last Admin: 10/28/18 17:04 Dose: 25 mg Enoxaparin Sodium (Lovenox) 40 mg SC DAILY [facility]; Protocol Folic Acid (Folic Acid) 1 mg PO DAILY [facility] Last Admin: 10/28/18 08:50 Dose: 1 mg Ibuprofen (Motrin Tab) 600 mg PO Q6 PRN PRN Reason: Headache Last Admin: 10/27/18 12:06 Dose: 600 mg Insulin Detemir (Levemir) 54 units SC HS [facility] Last Admin: 10/28/18 21:29 Dose: 54 units Insulin Human Lispro (Humalog) 12 units SC AC [facility] Last Admin: 10/28/18 17:04 Dose: 12 units Insulin Human Lispro (Humalog) 0 units SC ACHS [facility] Last Admin: 10/28/18 21:32 Dose: Not Given Thiamine HCl (Vitamin B1 Tab) 100 mg PO DAILY [facility] Last Admin: 10/28/18 08:50 Dose: 100 mg - Labs Labs: 10/28/18 05:30 10/28/18 05:30 PT 9.7 Seconds (9.8-13.1) L 10/26/18 15:04 INR 0.9 10/26/18 15:04 APTT 30.0 Seconds (25.6-37.1) 10/26/18 15:04 - Constitutional Appears: Well, Non-toxic, No Acute Distress - Head Exam Head Exam: ATRAUMATIC, NORMAL INSPECTION, NORMOCEPHALIC - Eye Exam Eye Exam: EOMI, Normal appearance, PERRL Pupil Exam: NORMAL ACCOMODATION, PERRL - ENT Exam ENT Exam: Mucous Membranes Moist, Normal Exam - Neck Exam Neck Exam: Full ROM, Normal Inspection. absent: Lymphadenopathy - Respiratory Exam Respiratory Exam: Clear to Ausculation Bilateral, NORMAL BREATHING PATTERN - Cardiovascular Exam Cardiovascular Exam: REGULAR RHYTHM, RRR, +S1, +S2. absent: Murmur - GI/Abdominal Exam GI & Abdominal Exam: Soft, Normal Bowel Sounds. absent: Tenderness - Extremities Exam Extremities Exam: Full ROM, Normal Capillary Refill, Normal Inspection. absent: Joint Swelling, Pedal Edema - Back Exam Back Exam: NORMAL INSPECTION - Neurological Exam Neurological Exam: Alert, Awake, CN II-XII Intact, Normal Gait, Oriented x3 - Psychiatric Exam Psychiatric exam: Normal Affect, Normal Mood - Skin Skin Exam: Dry, Intact, Normal Color, Warm Assessment and Plan (1) Alcohol withdrawal seizure Assessment & Plan: monitor for sz etoh withdrawal ppx neuro eeg Status: Acute (2) Cardiomyopathy Assessment & Plan: cath pending cardio asa, coreg Status: Acute (3) DVT prophylaxis Assessment & Plan: scd nad ae hose ambulation hold anticoag pending cath Status: Acute
[2018-10-28] MEDS ORDERED: Insulin Detemir 100 Units/ml Inj SC SCH (22:00)
[2018-10-29 00:02] VITALS: RESP 18
[2018-10-29 06:09] LABS: BASO % 0.5 % (0.0-2.0); EOS # 0.2 K/uL (0.0-0.7); EOS % 3.8 % (0.0-4.0); HEMOGLOBIN 15.7 g/dL (12.0-18.0); LYMPH # 1.1 K/uL (1.0-4.3); LYMPH % 23.9 % (20.0-40.0); MEAN CELL VOLUME 98.7 fl (80.0-94.0); MEAN CORPUSCULAR HEMOGLOBIN 33.8 pg (27.0-31.0); MEAN CORPUSCULAR HGB CONC 34.3 g/dL (33.0-37.0); MONO # 0.6 K/uL (0.0-0.8); MONO % 12.4 % (0.0-10.0); NEUT # 2.7 K/uL (1.8-7.0); NEUT % 59.4 % (50.0-75.0); NRBC % 0.1 % (0.0-0.0); RBC 4.65 Mil/uL (4.40-5.90); RED CELL DISTRIBUTION WIDTH 13.8 % (11.5-14.5); WHITE BLOOD COUNT 4.5 K/uL (4.8-10.8)
[2018-10-29 06:23] LABS: ALB/GLOB RATIO 1.1 (1.0-2.1); ALT/SGPT 40 U/L (21-72); AST/SGOT 44 U/L (17-59); BLOOD UREA NITROGEN 15 mg/dl (9-20); CALCIUM 9.5 mg/dL (8.4-10.2); GFR NON-AFRICAN AMERICAN > 60
[2018-10-29] MEDS: Insulin Lispro (humaLOG) 100 Units/ml Inj SC SCH ×4 (08:49→12:25)
--- NOTE | 2018-10-29 09:20 | CP.PCM.PN ---
Subjective - Date & Time of Evaluation Date of Evaluation: 10/29/18 Time of Evaluation: 09:18 - Subjective Subjective: PT SEEN AND EXAMINED. INFORMED WRITTEN CONSENT OBTAINED FOR CATH. NO DIZZINESS OR SZ OVERNIGHT. NO ORTHOPNEA, PND OR LEONIDES. Objective - Vital Signs/Intake and Output Vital Signs (last 24 hours): Temp Pulse Resp BP Pulse Ox 97.5 F L 87 18 144/96 H 96 10/29/18 05:47 10/29/18 05:47 10/29/18 05:47 10/29/18 05:47 10/29/18 05:47 - Medications Medications: Current Medications Acetaminophen (Tylenol 325mg Tab) 650 mg PO Q4 PRN PRN Reason: Headache Last Admin: 10/27/18 09:01 Dose: 650 mg Aspirin (Aspirin) 325 mg PO DAILY [facility] Last Admin: 10/29/18 05:30 Dose: 325 mg Carvedilol (Coreg) 6.25 mg PO Q12 [facility] Last Admin: 10/29/18 05:31 Dose: 6.25 mg Chlordiazepoxide (Librium) 25 mg PO Q8 PRN PRN Reason: Symptoms of alcohol withdrawl Last Admin: 10/29/18 05:30 Dose: 25 mg Enoxaparin Sodium (Lovenox) 40 mg SC DAILY [facility]; Protocol Folic Acid (Folic Acid) 1 mg PO DAILY [facility] Last Admin: 10/29/18 08:49 Dose: Not Given Ibuprofen (Motrin Tab) 600 mg PO Q6 PRN PRN Reason: Headache Last Admin: 10/27/18 12:06 Dose: 600 mg Insulin Detemir (Levemir) 54 units SC HS [facility] Last Admin: 10/28/18 21:29 Dose: 54 units Insulin Human Lispro (Humalog) 12 units SC AC [facility] Last Admin: 10/29/18 08:49 Dose: Not Given Insulin Human Lispro (Humalog) 0 units SC ACHS [facility] Last Admin: 10/29/18 08:49 Dose: Not Given Thiamine HCl (Vitamin B1 Tab) 100 mg PO DAILY [facility] Last Admin: 10/29/18 08:50 Dose: Not Given - Labs Labs: 10/29/18 04:20 10/29/18 04:20 PT 9.7 Seconds (9.8-13.1) L 10/26/18 15:04 INR 0.9 10/26/18 15:04 APTT 30.0 Seconds (25.6-37.1) 10/26/18 15:04 - Constitutional Appears: Well - Head Exam Head Exam: ATRAUMATIC, NORMAL INSPECTION, NORMOCEPHALIC - Eye Exam Eye Exam: EOMI, Normal appearance, PERRL. absent: Conjunctival injection, Nystagmus, Periorbital swelling, Periorbital tenderness, Scleral icterus Pupil Exam: NORMAL ACCOMODATION, PERRL - ENT Exam ENT Exam: Mucous Membranes Moist, Normal Exam. absent: Mucous Membranes Dry, Normal External Ear Exam, Normal Oropharynx, TM's Normal Bilaterally - Neck Exam Neck Exam: Full ROM, Normal Inspection. absent: Lymphadenopathy, Meningismus, Tenderness, Thyromegaly - Respiratory Exam Respiratory Exam: Clear to Ausculation Bilateral, NORMAL BREATHING PATTERN. absent: Accessory Muscle Use, Chest Wall Tenderness, Decreased Breath Sounds, Prolonged Expiratory Phase, Rales, Rhonchi, Wheezes, Respiratory Distress, Stridor - Cardiovascular Exam Cardiovascular Exam: REGULAR RHYTHM, +S1, +S2, Murmur. absent: Bradycardia, Tachycardia, Clicks, Diastolic murmur, Gallop, Irregular Rhythm, JVD, RRR, Rubs, +S4 - GI/Abdominal Exam GI & Abdominal Exam: Soft, Normal Bowel Sounds. absent: Bruit, Distended, Firm, Guarding, Rigid, Tenderness, Diminished Bowel Sounds, Hernia, Hyperactive Bowel Sounds, Hypoactive Bowel Sounds, Organomegaly, Pulsatile Mass, Rebound, Mass - Rectal Exam Rectal Exam: Deferred - Extremities Exam Extremities Exam: Full ROM, Normal Capillary Refill, Pedal Edema. absent: Calf Tenderness, Joint Swelling, Normal Inspection, Tenderness - Back Exam Back Exam: NORMAL INSPECTION. absent: CVA tenderness (L), CVA tenderness (R), Full ROM, muscle spasm, paraspinal tenderness, rash noted, tenderness, vertebral tenderness - Neurological Exam Neurological Exam: Alert, Awake, CN II-XII Intact, Normal Gait, Oriented x3. absent: Abnormal Gait, Altered, Motor Sensory Deficit, Reflexes Normal - Psychiatric Exam Psychiatric exam: Normal Affect, Normal Mood. absent: Agitated, Anxious, Depressed, Flat Affect, Homicidal Ideation, Manic, Suicidal Ideation - Skin Skin Exam: Dry, Intact, Normal Color, Warm. absent: Abrasion, Cyanosis, Diaphoretic, Erythema, Mottled, Pallor, Pallor, Petechiae, Rash, Urticaria, Vesicles Assessment and Plan (1) Cardiomyopathy Status: Acute (2) ETOH abuse Status: Chronic (3) Tobacco abuse Status: Chronic (4) HTN (hypertension) Status: Chronic (5) Diabetes mellitus type 2 in obese Status: Chronic - Assessment and Plan (Free Text) Plan: NO SIGNIFICANT CAD NOTED ON CATH DCM LIKELY DUE TO ETOH PT AWARE AND STATES HE WILL STOP ETOH MAY STOP ASA TREAT CM WITH RX ECHO IN 3 MONTHS TO RE-EVAL EF IF PT STOPS DRINKING. 65 MIN TOTAL CARE TIME
--- NOTE | 2018-10-29 09:33 | CP.PCM.PCO ---
Physician Communication Note - Physician Communication Note Physician Communication Note: pt in [facility] for cath. will f/u cardio
[2018-10-29 15:02] VITALS: BP 152/93; TEMP 97.8; O2SAT 94
[2018-10-29 16:14] VITALS: PULSE 87
[2018-10-29] MEDS ORDERED: Insulin Lispro (humaLOG) 100 Units/ml Inj SC SCH (16:30)
--- NOTE | 2018-10-29 18:01 | PN ---
DATE: 10/29/2018 ENDOCRINOLOGY FOLLOWUP LOCATION: Room 405. SUBJECTIVE: This is a 48-year-old male with recent uncontrolled type 2 diabetes presenting here with an apparent seizure event and is now being followed closely by Neurology with ongoing neurological workup and management. His glycemic levels are fluctuating as noted overnight and have ranged from 248-256 mg/dL. It was 166 at dinnertime last night. LABORATORY DATA: His chemistry showed a BUN of 15, sodium 139, potassium 4.8, chloride 96, CO2 of 29, glucose 296 and creatinine 1. ASSESSMENT AND PLAN: So at this time we will modify once again his basal and bolus insulin regimen and increase the Humalog to 14 units t.i.d. before meals to start today as ordered. We will continue the low-dose correction scale using Humalog insulin as given to obviate hypoglycemia. We will also titrate his basal insulin with Levemir given as 62 units subcu at bedtime daily to start tonight. We will titrate incremental as indicated to optimize metabolic control. We will obtain serial chemistries and supplement accordingly as needed. We will follow. Honey Hernández MD
[2018-10-29] MEDS ORDERED: Insulin Detemir 100 Units/ml Inj SC SCH (22:00)
--- NOTE | 2018-11-02 16:07 | CP.PCM.DIS ---
Provider - Provider Date of Admission: 10/26/18 15:26 Attending physician: Zay Byrnes MD Consults: 10/26/18 14:43 Stroke Team Consult Stat Comment: Consulting Provider: Neurohospitalist Consulting Physician: NEUROHOSP Neurohospitalist for Consult: Cooper Escobedo Neurohospitalist for Consult: Winnie Fields Reason for Consult: Left sided weakness 10/26/18 17:11 Endocrinology Consult Stat Comment: Consulting Provider: Honey Hernández Consulting Physician: Honey Hernández Reason for Consult: uncontrolled dm 10/27/18 11:15 Neurology Consult Routine Comment: Consulting Provider: Winnie Fields Consulting Physician: Winnie Fields Reason for Consult: new onset seizure, r/o tia 10/28/18 08:11 Cardiology Consult Routine Comment: Consulting Provider: Olivia Solorio Consulting Physician: Olivia Solorio Reason for Consult: adm w/ r/o seizure vs tia; echo hypokinesis w/ EF 35% Time Spent in preparation of Discharge (in minutes): 15 Diagnosis - Discharge Diagnosis (1) DVT prophylaxis Status: Acute (2) Diabetes mellitus type 2 in obese Status: Chronic Priority: High (3) New onset seizure Status: Acute Hospital Course - Lab Results Lab Results: Most Recent Lab Values WBC 4.5 K/uL (4.8-10.8) L 10/29/18 04:20 RBC 4.65 Mil/uL (4.40-5.90) 10/29/18 04:20 Hgb 15.7 g/dL (12.0-18.0) 10/29/18 04:20 Hct 45.9 % (35.0-51.0) 10/29/18 04:20 MCV 98.7 fl (80.0-94.0) H 10/29/18 04:20 MCH 33.8 pg (27.0-31.0) H 10/29/18 04:20 MCHC 34.3 g/dL (33.0-37.0) 10/29/18 04:20 RDW 13.8 % (11.5-14.5) 10/29/18 04:20 Plt Count 156 K/uL (130-400) 10/29/18 04:20 MPV 9.0 fl (7.2-11.7) 10/29/18 04:20 Neut % (Auto) 59.4 % (50.0-75.0) 10/29/18 04:20 Lymph % (Auto) 23.9 % (20.0-40.0) 10/29/18 04:20 [place] % (Auto) 12.4 % (0.0-10.0) H 10/29/18 04:20 Eos % (Auto) 3.8 % (0.0-4.0) 10/29/18 04:20 Baso % (Auto) 0.5 % (0.0-2.0) 10/29/18 04:20 Neut # (Auto) 2.7 K/uL (1.8-7.0) 10/29/18 04:20 Lymph # (Auto) 1.1 K/uL (1.0-4.3) 10/29/18 04:20 [place] # (Auto) 0.6 K/uL (0.0-0.8) 10/29/18 04:20 Eos # (Auto) 0.2 K/uL (0.0-0.7) 10/29/18 04:20 Baso # (Auto) 0.0 K/uL (0.0-0.2) 10/29/18 04:20 Neutrophils % (Manual) 56 % (42-75) 10/27/18 04:40 Lymphocytes % (Manual) 29 % (20-50) 10/27/18 04:40 Reactive Lymphs % 1 % (0-0) H 10/27/18 04:40 Monocytes % (Manual) 12 % (0-10) H 10/27/18 04:40 Eosinophils % (Manual) 1 % (0-7) 10/27/18 04:40 Basophils % (Manual) 1 % (0-2) 10/27/18 04:40 Platelet Estimate Normal (NORMAL) 10/27/18 04:40 RBC Morphology Normal (NORMAL) 10/27/18 04:40 PT 9.7 Seconds (9.8-13.1) L 10/26/18 15:04 INR 0.9 10/26/18 15:04 APTT 30.0 Seconds (25.6-37.1) 10/26/18 15:04 pCO2 24 mm/Hg (35-45) L 10/26/18 16:54 pO2 30 mm/Hg (30-55) 10/26/18 20:53 HCO3 18.2 mmol/L (21-28) L 10/26/18 16:54 ABG pH 7.39 (7.35-7.45) 10/26/18 16:54 ABG Total CO2 15.2 mmol/L (22-28) L 10/26/18 16:54 ABG O2 Saturation 100.3 % (95-98) H 10/26/18 16:54 ABG Base Excess -8.6 mmol/L (-2.0-3.0) L 10/26/18 16:54 Jhon Test Yes 10/26/18 16:54 ABG Potassium 4.6 mmol/L (3.6-5.2) 10/26/18 16:54 VBG pH 7.45 (7.32-7.43) H 10/26/18 20:53 VBG pCO2 32 mmHg (40-60) L 10/26/18 20:53 VBG HCO3 23.2 mmol/L 10/26/18 20:53 VBG Total CO2 23.2 mmol/L (22-28) 10/26/18 20:53 VBG O2 Sat (Calc) 68.0 % (40-65) H 10/26/18 20:53 VBG Base Excess -1.0 mmol/L (0.0-2.0) L 10/26/18 20:53 VBG Potassium 4.3 mmol/L (3.6-5.2) 10/26/18 20:53 A-a O2 Difference 23.0 mm/Hg 10/26/18 16:54 Sodium 136.0 mmol/L (132-148) 10/26/18 20:53 Chloride 101.0 mmol/L (98-107) 10/26/18 20:53 Glucose 177 mg/dL (75-110) H 10/26/18 20:53 Lactate 1.9 mmol/L (0.7-2.1) 10/26/18 20:53 FiO2 21.0 % 10/26/18 20:53 Crit Value Called To Saurav almodovar md 10/26/18 16:54 Crit Value Called By 60Alphonso 10/26/18 16:54 Crit Value Read Back Y 10/26/18 16:54 Blood Gas Notified Time 165 10/26/18 16:54 Sodium 139 mmol/l (132-148) 10/29/18 04:20 Potassium 4.8 MMOL/L (3.6-5.0) 10/29/18 04:20 Chloride 96 mmol/L (98-107) L 10/29/18 04:20 Carbon Dioxide 29 mmol/L (22-30) 10/29/18 04:20 Anion Gap 19 (10-20) 10/29/18 04:20 BUN 15 mg/dl (9-20) 10/29/18 04:20 Creatinine 1.0 mg/dl (0.8-1.5) 10/29/18 04:20 Est GFR ( Amer) > 60 10/29/18 04:20 Est GFR (Non-Af Amer) > 60 10/29/18 04:20 POC Glucose (mg/dL) 407 mg/dL (65-110) H* 10/29/18 14:54 Random Glucose 296 mg/dL (75-110) H 10/29/18 04:20 Hemoglobin A1c 8.7 % (4.2-6.5) H 10/26/18 15:26 Calcium 9.5 mg/dL (8.4-10.2) 10/29/18 04:20 Phosphorus 3.1 mg/dl (2.5-4.5) 10/27/18 04:40 Magnesium 2.4 MG/DL (1.6-2.3) H 10/27/18 04:40 Total Bilirubin 1.0 mg/dl (0.2-1.3) 10/29/18 04:20 AST 44 U/L (17-59) 10/29/18 04:20 ALT 40 U/L (21-72) 10/29/18 04:20 Alkaline Phosphatase 120 U/L (38-126) 10/29/18 04:20 Total Creatine Kinase 121 U/L (55-170) 10/26/18 16:06 Troponin I 0.1080 ng/mL (0.00-0.120) 10/26/18 15:04 Total Protein 7.5 G/DL (6.3-8.2) 10/29/18 04:20 Albumin 4.0 g/dL (3.5-5.0) 10/29/18 04:20 Globulin 3.5 gm/dL (2.2-3.9) 10/29/18 04:20 Albumin/Globulin Ratio 1.1 (1.0-2.1) 10/29/18 04:20 Triglycerides 290 mg/DL (0-149) H 10/26/18 15:04 Cholesterol 275 mg/dL (0-199) H 10/26/18 15:04 LDL Cholesterol Direct 122 mg/dL (0-129) 10/26/18 15:04 HDL Cholesterol 105 MG/DL (30-70) H 10/26/18 15:04 TSH 3rd Generation 3.09 mIU/ML (0.46-4.68) 10/27/18 04:40 Cortisol AM Sample 18.4 ug/dL (4.46-22.7) 10/27/18 04:40 ACTH 47 pg/mL (6-50) 10/27/18 04:40 Arterial Blood Potassium 4.6 mmol/L (3.6-5.2) 10/26/18 16:54 Venous Blood Potassium 4.3 mmol/L (3.6-5.2) 10/26/18 20:53 Urine Opiates Screen Negative (NEGATIVE) 10/28/18 14:40 Urine Methadone Screen Negative (NEGATIVE) 10/28/18 14:40 Ur Barbiturates Screen Negative (NEGATIVE) 10/28/18 14:40 Ur Phencyclidine Scrn Negative (NEGATIVE) 10/28/18 14:40 Ur Amphetamines Screen Negative (NEGATIVE) 10/28/18 14:40 U Benzodiazepines Scrn Negative (NEGATIVE) 10/28/18 14:40 U Oth Cocaine Metabols Negative (NEGATIVE) 10/28/18 14:40 U Cannabinoids Screen Negative (NEGATIVE) 10/28/18 14:40 Alcohol, Quantitative < 10 mg/dl (0-10) 10/28/18 08:45 Hepatitis C Antibody Negative (NEGATIVE) 10/28/18 15:15 HIV-1 Ab Rapid Screen Non reactive (NON REAC) 10/28/18 15:15 Blood Type O POSITIVE 10/26/18 15:30 Blood Type Confirm O POSITIVE 10/26/18 16:26 Antibody Screen Negative 10/26/18 15:30 BBK History Checked No verified bt 10/26/18 15:30 - Hospital Course Hospital Course: pt was admitted for seizure, found to be withdrawaing from etoh. neuro consulted and eeg negative. no further sz. pt had echo and found to have ef of 30-40 %. went to [facility] for cath-negative. was cleared by cardio/neuro and dc. Discharge Exam - Head Exam Head Exam: ATRAUMATIC, NORMAL INSPECTION, NORMOCEPHALIC Discharge Plan - Discharge Medications Prescriptions: Aspirin 325 mg PO DAILY #30 tab Atorvastatin [Lipitor] 20 mg PO HS #30 tab Carvedilol [Coreg] 6.25 mg PO Q12 #30 tab - Follow Up Plan Condition: FAIR Disposition: HOME/ ROUTINE Instructions: Cardiac Catheterization (DC), Seizures, Adult (DC), Cardiomyopathy (DC) Additional Instructions: follow up with in 2-3 days final dx-alcohol withdrawal sz, cardiomyopathy cleared by cardio/neuro no sx, f/u rmg, rted prn, meds pe rmed rec etoh outpt rehab/detox Referrals: [facility] [Provider Group] Tanna Arias MD [Staff Provider] -
== END 2018-10-29 16:00 | disposition home or self-care (01) | DRG 101 ==
LOC: H.ER 14:34 → H.ERHOLD 15:26 → OBSVTOIN 15:26 → H.TEL 18:18
PROVIDERS: ADMIT Family Medicine; ATTEND Family Medicine
PROC: 4A023N7 Measurement of Cardiac Sampling and Pressure, Left Heart, Percutaneous Approach (ICD-10-PCS; principal; 2018-10-29)
PROC: B205YZZ Plain Radiography of Left Heart using Other Contrast (ICD-10-PCS; 2018-10-29)
DX: G40.89 Other seizures (principal); I42.9 Cardiomyopathy, unspecified; F10.239 Alcohol dependence with withdrawal, unspecified; E11.65 Type 2 diabetes mellitus with hyperglycemia; E66.01 Morbid (severe) obesity due to excess calories; I10 Essential (primary) hypertension; E78.5 Hyperlipidemia, unspecified; Z68.33 Body mass index [BMI] 33.0-33.9, adult; Z72.0 Tobacco use; Z79.4 Long term (current) use of insulin; Z79.82 Long term (current) use of aspirin